=== PATIENT | male | born 1945 | race Caucasian/White ===

== ENCOUNTER 2017-12-22 17:11 | Outpatient (CLI) | payer MEDICARE ==
--- NOTE | 2017-12-22 20:49 | CONSULTATION NOTE ---
Palliative Care Consultation - Referral Referring Provider: Dr. Charles Ruiz Time of Visit: [id number] Referral setting: Home Referral Reason: Dementia with behavioral distrubances - Information Sources Records reviewed: Previous records reviewed History/Review of Systems obtained from: Patient, Family (Isidra present for visit) Exam limitations: Clinical condition (patient with delusions/hallucinatons; STM issues) - History of Present Illness Brief History of Present Illness: This is a 72-year-old gentleman who I am seeing today to evaluate in his home setting related to dementia with behavioral disturbances. Most of the history because of his short-term memory issues, is supplied by his Isidra. Patient is present through most of this visit. reports there had been some concern about perfusion, and hypoxia when patient was severely bradycardic and until he had a placement of a pacemaker in 2013. He was starting to have some short-term memory issues and more irritability during this time. This is come to ahead specifically as far as his underlying dementia, when he had his right knee replaced in June 2017. She reports he was quite agitated, delusional, appeared to have responded poorly to the anesthesia. She is very worried about him having the second knee, as it was a very difficult recovery and patient agitated and combative. She had not noted until she was home in August after laid off from her work, just has significant the delusions were. She reports these have continued to increase, are daily, patient is argumentative and difficult around these. Did come to ahead the other week when patient took off on the bus without tellingher, had to have search and rescue and 911 called, patient finally made contact by mobile phone as could not problem solve out of his predicament. Patient does not recall the significance of this event or the details. She also reports patient often does not recognize who she is, that he does have some paranoia around this. Reports that he sees people and has a whole story line regarding this, is not able to be reasoned with or redirected when discussed between the two of them. When asked patient his perception of his current situation, he reports he has "bouts of forgetfulness". That his does tend to think "he is crazy". As he relaxed more into the visit he did share with me and asked me if I saw the little people out there in the yard. He reports it was a whole flock of them, when asked if he saw animals as well, he said that animal like features and was similar to dwarfs as well. They were nonthreatening, and then went on to confabulate as story regarding their presence and purpose. Later in the visit he did see someone sitting behind me in the living room, when asked if they spoke to him or give him directions he reports he did try to talk with them at times but was more evasive around this. Patient denies depression, denies suicidality, denies receiving any kind of messages are instruction from his hallucinations/delusions. reports he is somewhat hesitant to share the extent of these, and often shuts down when questioned about these with providers. Patient is functional in the home setting, is able to attend his own ADLs, though with this most recent episode of actually taking off on the bus, there is concern for his wandering now. Patient has very little insight into the progressive nature or his dementia. is concerned about the pending future , she does need to return to back to work. There are financial stressors, concerned about leaving him home even with family checking on him. She does feel that it has progressed and particularly over the last few weeks to months. Medical/Surgical History - Past Medical History Cardiovascular: reports: Hypertension, Coronary artery disease, [place] Respiratory: reports: Sleep apnea Neuro: Dementia Endocrine/Autoimmune: reports: Type 2 diabetes GI: reports: Colon polyps, Chronic constipation : reports: Benign prostate hypertrophy, Kidney stones HEENT: reports: Chronic hearing loss Psych: reports: Other (hallucinations/delusions) Musculoskeletal: reports: Osteoarthritis, Rheumatoid arthritis, Chronic back pain MRSA Hx?: No - Past Surgical History General: reports: Bowel surgery (resection of polyps) Ortho: reports: Knee replacement (right), Shoulder arthroplasty (left), Arthroscopic surgery Cardiovascular: reports: Pacemaker HEENT: reports: Tonsil/Adenoidectomy - Substance History Use: Uses substance without health or social issues: Tobacco (30 pack year), Alcohol (hx of ETOH abuse; 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 (Patient and have been 24 years , they have no kids together, patient does have a son who is 36 but not in contact with patient has schizophrenia and addiction; there is support is mostly 's family mother and aunt provide support frequently. Patient's family is from [place] and minimally involved) Family History - Family History Family History: Mother: (mother 80 of bowel blocage), Father: , CVA/TIA (age 82), Other family: Alive and Well (son 36 with schizophrenia/addiction issues) Medications/Allergies - Medications Home Medications: Ambulatory Orders Medication Instructions Recorded Confirmed Aspirin 81 mg PO DAILY 12/23/17 12/23/17 Cholecalciferol (Vitamin D3) 2,000 units PO DAILY 12/23/17 12/23/17 [Vitamin D3] Cyanocobalamin (Vitamin B-12) 1,000 mg IM .WEEKLY X 6 12/23/17 12/23/17 [Cyanocobalamin Injection] Lisinopril 10 mg PO DAILY 12/23/17 12/23/17 Melatonin 3 mg PO DAILY 12/23/17 12/23/17 Metformin HCl 1,000 mg PO BID 12/23/17 12/23/17 Pravastatin Sodium 20 mg PO DAILY 12/23/17 12/23/17 Tamsulosin [Flomax] 0.4 mg PO DAILY 12/23/17 12/23/17 amLODIPine [Norvasc] 5 mg PO DAILY 12/23/17 12/23/17 - Allergies Allergies/Adverse Reactions: Allergies Allergy/AdvReac Type Severity Reaction Status Date / Time No Known Drug Allergies Allergy Verified 12/23/17 19:29 Review of Systems - Constitutional Constitutional: reports: Fatigue, Weight loss - Ears, Nose & Throat Ears, Nose & Throat: reports: Hearing loss - Cardiovascular Cardiovascular: reports: Decr. exercise tolerance. denies: Chest pain, Edema - Respiratory Respiratory: reports: SOB with exertion. denies: SOB at rest - Gastrointestinal Gastrointestinal: reports: Constipation (intermittent), Good appetite. denies: Nausea - Genitourinary Genitourinary: reports: Frequency - Musculoskeletal Musculoskeletal: reports: Back pain, Muscle aches, Stiffness, Muscle weakness, Joint pain (left knee), Other (difficulty walking) - Integumentary Integumentary: reports: Dryness - Neurological Neurological: reports: Memory problems, Abnormal gait - Psychiatric Psychiatric: reports: Anxiety, Delusions, Hallucinations, Aggitation, Behavior disturbances. denies: Suicidal - Endocrine Endocrine: reports: Diabetes type 2 ( reports controlled; do not check bs) - Hematologic/Lymphatic Hematologic/Lymphatic: denies: Recurrent infections - All Other Systems All Other Systems: reports: Reviewed and negative Physical Exam - Vital Signs Temperature: 97.2 C Pulse Rate: 64 Respiratory Rate: 18 O2 Saturation: 97 (ra @ rest) Blood Pressure: 112/62 - Physical Exam General Appearance: positive: Mild distress, Anxious Eyes Bilateral: positive: Normal inspection ENT: positive: No signs of dehydration Neck: positive: No JVD, Trachea midline Cardiovascular: positive: Regular rate & rhythm Respiratory: positive: No respiratory distress, Breath sounds nml Abdomen: positive: Non-tender, Soft, Nml bowel sounds Skin: positive: Dryness Extremities: positive: No pedal edema, Other (gait guarded; some shuffle with initiation of ambulation;) Neurologic/Psychiatric: positive: Oriented x3, Mood/affect nml, Weakness, Flat affect Palliative Care - POLST Patient has POLST: No Pain: No pain, Location (flucutating left knee; worsens with ambulation; raphael at time-awaiting knee replacement;) Tiredness/Fatigue: Moderate (4-6) Drowsiness/Sedation: Moderate (4-6) Nausea: None Depression: Mild (1-3) Anxiety: Mild (1-3) Dyspnea: None Anorexia: Moderate (4-6) Sleep: Variable sleep pattern Constipation: Yes, Intermittent constipation Feelings of wellbeing/Perceived Quality of Life: Fair, Worsening Performance Status: Patient able to attend to her own ADLs, is able to shower, does do some household tasks as well as task around their property. They do have quite a few animals, he does do some cooking. is hesitant though due to his dementia and cognitive issues to leave him unsupervised. - Palliative Care Discussion: Patient does seem genuinely distressed by the current situation. He is quite isolated, no longer able to drive, currently they cannot afford their TV so patient does spend much of his time sleeping. He is still continues marijuana, though is unable to quantify this, does appear he is "ran out" in the last 3-4 days. Patient presents with very little insight to his current situation, though does seem to recognize the distress he is causing his , they were actually fairly calm through the visit, though it can be quite tense per his . When spoke to the as patient got up several times to go to bathroom, she does understand its progressive disease, she is having increased worries about how she is going to manage him particularly as he declines. They do not have any kind of advanced directives, did encourage at least to set up a durable power of health information systems security developer, if she were able to identify a second person if she something were to happen to herself. Patient actually participated in this conversation, including wondering if he should list 1 of his siblings. Given the complexity of the situation, I did not take it further as far as advanced care planning, but did provide the with some information regarding the continuum of care for patients with progressive dementia, we did discuss limited resources at this point in time available to her as he is functional with his ADLs and requires no personal care, but she is interested in finding out what resources might be available in the future. Will make a referral to our medical palliative care sr. social media & mobile manager. Her greatest concern is she does need to return to work, and what kind of arrangements for his care and safety are they going to need. Impression and Recommendations - Palliative Care Impression: This is a 72-year-old gentleman who presents with complex description regarding his dementia and progressive cognitive decline. Patient does present with significant persistent visual hallucinations, confabulations, paranoia, shuffled gait, fluctuating alertness, and now with some wandering. He does have emotional responses for his agitation and anxiety when confronted by his regarding his hallucinations/delusions. Patient presents quite calm and cooperative during my visit. Patient has risk factors including history of alcoholism, vascular events, but concerned definitely regarding a possible presentations could be mixed with Lewy body as well. Has fluctuating alertness/ drowsiness, symptoms of possible urinary retention and intermittent constipation.Patient is seeing neurology will follow up, patient would benefit from a trial of antipsychotics that will consult with his neurologist. Palliative care to provide support regarding education for expected and ongoing decline, access to community resources, as well as anticipatory guidance. Recommendations/Counseling Done: 1. Dementia with behavioral disturbances. Evaluation done in the home setting, will follow up with neurologist regarding initiation of antipsychotic. Education and information given to regarding risk versus benefit ratio. Would be helpful to trial prior to his appointment in 2 weeks. Given his wandering episode, did recommend getting patient's [employer] alert for location, this is available through the Alzheimer's organization. Referred her there as well for further information as well as provided her information on progression of dementia and resources in this state. Will provide referral to medical palliative care sr. social media & mobile manager, she does understand she is not qualified at this point in time for any assistance through [facility], but will have sr. social media & mobile manager review threshold and resources available in the community moving forward. 2. Constipation. Patient reports is able to address with adding Benefiber. Did recommend if needed MiraLAX also and appropriate medication and can be used for intermittent constipation. 3. Advanced care planning. Did recommend as a priority to establish D POA document as well as a second DPOAE if not available as well as start to discuss long-term care planning. Will have sr. social media & mobile manager follow-up on this as well. First visit and establishing rapport and trust with patient, will explore goals and values and follow-up appointment. Thank you Dr. Ruiz for asking palliative care consult service involved in this care of the patient. He is in a very difficult and complex situation, and his is definitely struggling with how best to work with him. I will work with neurologist as far as introducing medications as advised and evaluating in the home setting and response. 2. Time Spent: 75 minutes spent in counseling regarding disease, disease trajectory, advanced care planning, community resources as and anticipatory guidance.
== END 2017-12-22 17:12 | disposition home or self-care (01) ==
LOC: PC 17:11
PROVIDERS: ATTEND Nurse Practitioner Adult Health
DX: Z51.5 Encounter for palliative care (principal); F03.91 Unspecified dementia, unspecified severity, with behavioral disturbance; K59.00 Constipation, unspecified; Z95.0 Presence of cardiac pacemaker; F22 Delusional disorders; R44.1 Visual hallucinations; R44.0 Auditory hallucinations; E11.9 Type 2 diabetes mellitus without complications; Z79.82 Long term (current) use of aspirin; Z79.84 Long term (current) use of oral hypoglycemic drugs; R45.1 Restlessness and agitation; M25.562 Pain in left knee; Z91.83 Wandering in diseases classified elsewhere
CPT/HCPCS: 99345

== ENCOUNTER 2019-03-12 04:55 | Emergency (ER) | payer MEDICARE | END 2019-03-12 05:13 | disposition left against medical advice (07) | LOC: ED 04:55 | DX: Z53.29 Procedure and treatment not carried out because of patient's decision for other reasons (principal) ==

== ENCOUNTER 2019-03-12 06:52 | Emergency (ER) | payer MEDICARE ==
[2019-03-12 07:09] LABS: BILIRUBIN,URINE NEGATIVE (NEGATIVE); GLUCOSE, URINE (UA) NEGATIVE (NEGATIVE); KETONES,URINE (UA) NEGATIVE (NEGATIVE); LEUKOCYTE ESTERASE, URINE NEGATIVE (NEGATIVE); NITRITE,URINE NEGATIVE (NEGATIVE); OCCULT BLOOD,URINE SMALL (NEGATIVE); PH,URINE 5.5 PH (5.0-7.5); PROTEIN,URINE NEGATIVE (NEGATIVE); UROBILINOGEN,URINE 0.2 (NORMAL) E.U./dL (NORMAL)
[2019-03-12 07:11] VITALS: BP 152/87
--- NOTE | 2019-03-12 07:11 | ED Physician Documentation ---
History of Present Illness - Stated complaint Stated Complaint: DELUSIONS - Chief complaint Chief Complaint: MHE - Additonal information Additional information: This is a 73-year-old male with a history of dementia with delusions, who presen ts due to a episode of delusions/agitation. His Isidra is at bedside and provides most the history. She states that he woke her up at 330AM and said that they needed to get out of the house because a [employer] company was going to blow up their house. He continued to be delusional so she brought him here to the emergency department, but then they went back out to the car as he did not want to check in, but then he became more agitated and he was brought into the emergency department by the industrial workers. Now she states that he appears more calm. He chronically has delusions, which involves seeing people or that they are in danger need to leave the house, but this episode was worse than usual. He has been taking his medications which include Seroquel and realistic mean, his atorvastatin dose was increased in the last week. No complaints of pain, fever, cough, dysuria. Review of Systems Constitutional: denies: Fever Eyes: denies: Loss of vision Nose: denies: Rhinorrhea / runny nose Throat: reports: Other (Poor dentition) Cardiac: denies: Chest pain / pressure Respiratory: denies: Dyspnea GI: denies: Abdominal Pain : denies: Dysuria Skin: denies: Rash Neurologic: denies: Generalized weakness Psychiatric: reports: Delusions PD PAST MEDICAL HISTORY - Past Medical History Cardiovascular: Hypertension, Coronary artery disease, [place] Respiratory: Sleep apnea Neuro: Dementia Endocrine/Autoimmune: Type 2 diabetes GI: Colon polyps, Chronic constipation : Benign prostate hypertrophy, Kidney stones HEENT: Chronic hearing loss Psych: Other (hallucinations/delusions) Musculoskeletal: Osteoarthritis, Rheumatoid arthritis, Chronic back pain - Past Surgical History General: Bowel surgery (resection of polyps) Ortho: Knee replacement (right), Shoulder arthroplasty (left), Arthroscopic surgery Cardiovascular: Pacemaker HEENT: Tonsil/Adenoidectomy - Present Medications Home Medications: Ambulatory Orders Medication Instructions Recorded Confirmed Aspirin 81 mg PO DAILY 12/23/17 12/23/17 Cholecalciferol (Vitamin D3) 2,000 units PO DAILY 12/23/17 12/23/17 [Vitamin D3] Cyanocobalamin (Vitamin B-12) 1,000 mg IM .WEEKLY X 6 12/23/17 12/23/17 [Cyanocobalamin Injection] Lisinopril 10 mg PO DAILY 12/23/17 12/23/17 Melatonin 3 mg PO DAILY 12/23/17 12/23/17 Metformin HCl 1,000 mg PO BID 12/23/17 12/23/17 Pravastatin Sodium 20 mg PO DAILY 12/23/17 12/23/17 Tamsulosin [Flomax] 0.4 mg PO DAILY 12/23/17 12/23/17 amLODIPine [Norvasc] 5 mg PO DAILY 12/23/17 12/23/17 - Allergies Allergies/Adverse Reactions: Allergies Allergy/AdvReac Type Severity Reaction Status Date / Time No Known Drug Allergies Allergy Verified 03/12/19 07:07 - POLST Patient has POLST: No PD ED PE NORMAL - Vitals Vital signs reviewed: Yes - General General: No acute distress - HEENT HEENT: Atraumatic, PERRL, Other (Relatively poor dentition with multiple areas of decay, but no cellulitis abscess or purulent drainage.) - Neck Neck: Supple, no meningeal sign - Cardiac Cardiac: RRR - Respiratory Respiratory: No respiratory distress, Clear bilaterally - Abdomen Abdomen: Soft, Non tender, Non distended - Derm Derm: Warm and dry - Extremities Extremities: No deformity - Neuro Neuro: Other (Alert, interactive, answers basic questions, though he sometimes needs re-prompting, as his answers will be tangential or non sequiturs. When his is talking about the delusion of the movie the [employer] blowing up their house, he states "well that was the world I was living in then." Normal gait, symmetric strength, no sensory deficit.) - Psych Psych: Normal mood, Normal affect Results - Vitals Vitals: Vital Signs - 24 hr 03/12/19 07:07 Temperature 36.7 C Heart Rate 63 Respiratory 12 Rate Blood Pressure 152/87 H O2 Saturation 100 Oxygen O2 Source Room air - Labs Labs: Laboratory Tests 03/12/19 03/12/19 03/12/19 06:53 06:53 07:18 WBC 7.1 RBC 4.10 L Hgb 11.7 L Hct 36.0 L MCV 87.8 MCH 28.5 MCHC 32.5 RDW 12.5 Plt Count 272 MPV 9.3 Neut # (Auto) 4.5 Lymph # (Auto) 1.3 L Otero # (Auto) 0.5 Eos # (Auto) 0.7 Baso # (Auto) 0.1 Absolute Nucleated RBC 0.00 Nucleated RBC % 0.0 Sodium Potassium Chloride Carbon Dioxide Anion Gap BUN Creatinine Estimated GFR (MDRD) Glucose Calcium Total Bilirubin AST ALT Alkaline Phosphatase Total Protein Albumin Globulin Albumin/Globulin Ratio Lipase Urine Color YELLOW Urine Clarity CLEAR Urine pH 5.5 Ur Specific [place] 1.015 Urine Protein NEGATIVE Urine Glucose (UA) NEGATIVE Urine Ketones NEGATIVE Urine Occult Blood SMALL H Urine Nitrite NEGATIVE Urine Bilirubin NEGATIVE Urine Urobilinogen 0.2 (NORMAL) Ur Leukocyte Esterase NEGATIVE Urine RBC None Seen Urine WBC 0-3 Ur Squamous Epith Cells NONE SEEN Urine Bacteria None Seen Ur Microscopic Review INDICATED Urine Culture Comments NOT INDICATED Salicylates Urine Opiates Screen NEGATIVE Ur Oxycodone Screen NEGATIVE Urine Methadone Screen NEGATIVE Ur Propoxyphene Screen NEGATIVE Acetaminophen Ur Barbiturates Screen NEGATIVE Ur Tricyclics Screen NEGATIVE Ur Phencyclidine Scrn NEGATIVE Ur Amphetamine Screen NEGATIVE U Methamphetamines Scrn NEGATIVE U Benzodiazepines Scrn NEGATIVE Urine Cocaine Screen NEGATIVE U Cannabinoids Screen NEGATIVE Ethyl Alcohol 03/12/19 07:18 WBC RBC Hgb Hct MCV MCH MCHC RDW Plt Count MPV Neut # (Auto) Lymph # (Auto) Otero # (Auto) Eos # (Auto) Baso # (Auto) Absolute Nucleated RBC Nucleated RBC % Sodium 141 Potassium 4.1 Chloride 105 Carbon Dioxide 27 Anion Gap 9.0 BUN 29 H Creatinine 1.3 H Estimated GFR (MDRD) 54 L Glucose 100 Calcium 10.0 Total Bilirubin 0.6 AST 14 ALT 13 Alkaline Phosphatase 46 Total Protein 7.5 Albumin 4.5 Globulin 3.0 Albumin/Globulin Ratio 1.5 Lipase 147 H Urine Color Urine Clarity Urine pH Ur Specific [place] Urine Protein Urine Glucose (UA) Urine Ketones Urine Occult Blood Urine Nitrite Urine Bilirubin Urine Urobilinogen Ur Leukocyte Esterase Urine RBC Urine WBC Ur Squamous Epith Cells Urine Bacteria Ur Microscopic Review Urine Culture Comments Salicylates < 6.0 Urine Opiates Screen Ur Oxycodone Screen Urine Methadone Screen Ur Propoxyphene Screen Acetaminophen < 10 L Ur Barbiturates Screen Ur Tricyclics Screen Ur Phencyclidine Scrn Ur Amphetamine Screen U Methamphetamines Scrn U Benzodiazepines Scrn Urine Cocaine Screen U Cannabinoids Screen Ethyl Alcohol < 5.0 PD MEDICAL DECISION MAKING - ED course Complexity details: considered differential (UTI, thyroid disturbance, dementia, medication side effect, electrolyte disturbance, substance use) ED course: On the time of my evaluation patient has calmed down from 's description of his agitation earlier, and she states that he is at his baseline. His labs show a anemia of 11.7, his baseline is unknown, and slightly elevated creatinine of 1.3, baseline is also unknown. Urine is negative for infection, he has no leukocytosis, and no symptoms of infection on his exam. I discussed these results with patient and his , and they are eager to leave as he is doing better. His states that he appears to be back to his normal baseline and she feels comfortable taking him home. From her description he has recurrent episodes of agitation/delusions, this is not that out of the ordinary for him. I discussed that he should follow-up closely with his primary care provider, and if He is worsening, develops any fever or other new symptoms that she should bring him back for reevaluation. I also Discussed that he should hydrate adequately given he appears mildly dehydrated on his labs. She agrees this plan and patient was discharged home in her care. Departure - Departure Disposition: 01 Home, Self Care Clinical Impression: Agitation Condition: Stable Follow-Up: Dylan Ruiz MD [Primary Care Provider] - (For follow up on medications and agitation) Comments: Victor M was seen today due to episode of agitation with delusions. His labs show an anemia with hemoglobin of 11.7, and a creatinine (kidney test) of 1.3. I do not think that these values are related to his agitation, but they do need to be followed up by his primary care provider. I am glad that he has calmed down, however if things are getting worse or he is developing concerning symptoms such as fever, weakness or numbness, pain with urination, or new concerning symptoms, please bring him back to the emergency department for reevaluation. Otherwise please follow-up with Dr. Ruiz at the next available appointment.
[2019-03-12 07:13] LABS: MUDS CUTOFF CONCENTRATIONS CUTOFF CONC BELOW:
[2019-03-12 07:15] LABS: CLARITY,URINE CLEAR (CLEAR)
[2019-03-12 07:24] LABS: AMPHETAMINE SCREEN,URINE NEGATIVE (NEGATIVE); BENZODIAZEPINES SCREEN, URINE NEGATIVE (NEGATIVE); COCAINE SCREEN URINE NEGATIVE (NEGATIVE); METHADONE SCREEN, URINE NEGATIVE (NEGATIVE); METHAMPHETAMINES SCREEN, URINE NEGATIVE (NEGATIVE); OPIATE SCREEN, URINE NEGATIVE (NEGATIVE); OXYCODONE SCREEN, URINE NEGATIVE (NEGATIVE); PROPOXYPHENE SCREEN, URINE NEGATIVE (NEGATIVE); TRICYCLIC ANTIDEPRESSANT,URINE NEGATIVE (NEGATIVE)
[2019-03-12 07:25] LABS: BASOPHILS # (AUTO) 0.1 10^3/uL (0.0-0.1); BASOPHILS % (AUTO) 0.8 %; EOSINOPHILS # (AUTO) 0.7 10^3/uL (0.0-0.7); EOSINOPHILS % (AUTO) 10.1 %; HGB - HEMOGLOBIN 11.7 g/dL (14.0-18.0); LYMPHOCYTES # (AUTO) 1.3 10^3/uL (1.5-3.5); LYMPHOCYTES % (AUTO) 18.4 %; MEAN CORPUSCULAR HEMOGLOBIN 28.5 pg (27.0-31.0); MEAN CORPUSCULAR HGB CONC 32.5 g/dL (32.0-36.0); MEAN CORPUSCULAR VOLUME 87.8 fL (80.0-94.0); MEAN PLATELET VOLUME 9.3 fL (7.4-11.4); MONOCYTES # (AUTO) 0.5 10^3/uL (0.0-1.0); MONOCYTES % (AUTO) 7.5 %; NEUTROPHILS # (AUTO) 4.5 10^3/uL (1.5-6.6); NEUTROPHILS % (AUTO) 62.8 %; PLT - PLATELET COUNT 272 10^3/uL (130-450); RED CELL DISTRIBUTION WIDTH 12.5 % (12.0-15.0); WHITE BLOOD COUNT 7.1 x10^3/uL (4.8-10.8)
[2019-03-12 07:27] LABS: BACTERIA,URINE None Seen /HPF (None Seen); RBC,URINE None Seen /HPF (0-5); SQUAMOUS EPITHELIAL CELL,UR NONE SEEN (<= Few)
[2019-03-12 07:39] LABS: ACETAMINOPHEN < 10 ug/mL (10-30); ALBUMIN 4.5 g/dL (3.2-5.5); ALBUMIN/GLOBULIN RATIO 1.5 (1.0-2.2); ALKALINE PHOSPHATASE 46 IU/L (42-121); ALT ALANINE AMINOTRANSFERASE 13 IU/L (10-60); AST ASPARTATE AMINOTRANSFERASE 14 IU/L (10-42); BILIRUBIN,TOTAL 0.6 mg/dL (0.2-1.0); BUN - BLOOD UREA NITROGEN 29 mg/dL (6-20); CARBON DIOXIDE - CO2 27 mmol/L (21-32); CHLORIDE 105 mmol/L (101-111); CREATININE 1.3 mg/dL (0.6-1.2); GFR - MDRD 54 (>89); GLUCOSE 100 mg/dL (70-100); LIPASE 147 U/L (22-51); SALICYLATE < 6.0 mg/dL; SODIUM 141 mmol/L (135-145); TOTAL PROTEIN 7.5 g/dL (6.7-8.2)
== END 2019-03-12 08:02 | disposition home or self-care (01) ==
LOC: ED 06:52
DX: R45.1 Restlessness and agitation (principal); R44.3 Hallucinations, unspecified; F03.90 Unspecified dementia, unspecified severity, without behavioral disturbance, psychotic disturbance, mood disturbance, and anxiety; K02.9 Dental caries, unspecified; D64.9 Anemia, unspecified; R79.89 Other specified abnormal findings of blood chemistry; I10 Essential (primary) hypertension; E11.9 Type 2 diabetes mellitus without complications; Z79.899 Other long term (current) drug therapy; Z79.84 Long term (current) use of oral hypoglycemic drugs; Z95.0 Presence of cardiac pacemaker; Z79.82 Long term (current) use of aspirin
CPT/HCPCS: 36415; 80053; 80306; 80307; 80320; 80329; 81001; 81003; 83690; 84443; 85025; 87086; 99283

== ENCOUNTER 2019-04-17 01:18 | Outpatient (CLI) | payer MEDICARE | END 2019-04-17 01:19 | disposition critical access hospital (66) | LOC: EMS 01:18 | PROVIDERS: ATTEND Surgery | DX: R45.6 Violent behavior (principal); R41.82 Altered mental status, unspecified | CPT/HCPCS: A0425; A0428 ==

== ENCOUNTER 2019-04-17 01:55 | Emergency (ER) | payer MEDICARE ==
[2019-04-17 02:25] LABS: MUDS CUTOFF CONCENTRATIONS CUTOFF CONC BELOW:
[2019-04-17 02:27] LABS: BILIRUBIN,URINE NEGATIVE (NEGATIVE); CLARITY,URINE CLEAR (CLEAR); GLUCOSE, URINE (UA) NEGATIVE (NEGATIVE); KETONES,URINE (UA) NEGATIVE (NEGATIVE); LEUKOCYTE ESTERASE, URINE NEGATIVE (NEGATIVE); NITRITE,URINE NEGATIVE (NEGATIVE); OCCULT BLOOD,URINE TRACE-INTA (NEGATIVE); PH,URINE 5.5 PH (5.0-7.5); PROTEIN,URINE NEGATIVE (NEGATIVE); UROBILINOGEN,URINE 0.2 (NORMAL) E.U./dL (NORMAL)
[2019-04-17 02:37] LABS: AMPHETAMINE SCREEN,URINE NEGATIVE (NEGATIVE); BENZODIAZEPINES SCREEN, URINE NEGATIVE (NEGATIVE); COCAINE SCREEN URINE NEGATIVE (NEGATIVE); METHAMPHETAMINES SCREEN, URINE NEGATIVE (NEGATIVE); OPIATE SCREEN, URINE NEGATIVE (NEGATIVE); TRICYCLIC ANTIDEPRESSANT,URINE POSITIVE (NEGATIVE)
[2019-04-17 02:38] LABS: METHADONE SCREEN, URINE NEGATIVE (NEGATIVE); OXYCODONE SCREEN, URINE NEGATIVE (NEGATIVE); PROPOXYPHENE SCREEN, URINE NEGATIVE (NEGATIVE)
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
--- NOTE | 2019-04-17 05:23 | XRAY Report ---
Reason: fall left sided chest tenderness Procedure Date: 04/17/2019 Accession Number: [id number] / [id number] Procedure: XR - Chest 2 View X-Ray CPT Code: 94756 Final Report FULL RESULT: EXAM: CHEST RADIOGRAPHY EXAM DATE: 04/17/2019 05:16 AM. CLINICAL HISTORY: Fall left sided chest tenderness. COMPARISON: None. TECHNIQUE: 2 views. FINDINGS: Lungs/Pleura: No focal opacities evident. No pleural effusion. No pneumothorax. Normal volumes. Mediastinum: Heart and mediastinal contours are unremarkable. Other: Cardiac device with tips in the regions of the right atrial appendage and right ventricular apex. IMPRESSION: No acute cardiopulmonary process. RADIA
[2019-04-17 05:47] VITALS: BP 141/86
== END 2019-04-17 05:51 | disposition home or self-care (01) ==
LOC: EDUNIT# → ED 01:55
DX: G30.0 Alzheimer's disease with early onset (principal); F02.81 Dementia in other diseases classified elsewhere, unspecified severity, with behavioral disturbance; S20.212A Contusion of left front wall of thorax, initial encounter; W18.30XA Fall on same level, unspecified, initial encounter; I10 Essential (primary) hypertension; E11.9 Type 2 diabetes mellitus without complications; Z79.84 Long term (current) use of oral hypoglycemic drugs; Z79.82 Long term (current) use of aspirin
CPT/HCPCS: 71046; 80306; 81001; 81003; 87086; 99283

== ENCOUNTER 2019-09-07 18:25 | Outpatient (CLI) | payer SELFPAY | END 2019-09-07 18:26 | disposition E | LOC: EMS 18:25 | PROVIDERS: ATTEND Surgery ==